=== PATIENT | female | born 1965 | race Caucasian/White ===

== ENCOUNTER → 2017-02-04 | Outpatient (CLI) | payer MEDICARE, OTHER ==
--- NOTE | 2017-02-04 15:58 | KCIC ---
Indication: Left shoulder pain. Time of exam 3:38 PM 3 views of the left shoulder were obtained. The glenohumeral and acromioclavicular alignment are normal. The acromiohumeral space is normal. No fracture or dislocation is identified. IMPRESSION: No acute abnormality is detected. Electronically signed by: Gregg Feliciano MD (02/04/2017 3:55 PM) [id number]
== END | disposition home or self-care (01) ==
LOC: KCIC 15:10
PROVIDERS: ATTEND Family Medicine
DX: M25.512 Pain in left shoulder (principal)
CPT/HCPCS: 73030

== ENCOUNTER → 2017-05-19 | Outpatient (CLI) | payer OTHER ==
--- NOTE | 2017-05-19 16:03 | KCIC ---
UPPER EXT JOINT WO CONT LEFT dated 05/19/2017 3:30 PM Indication: Left shoulder pain , pain since January , decreased range of motion no known injury Comparison: No comparison is available. Technique: Routine multiplanar multisequence imaging performed. No contrast administered. Findings: Intermediate T2 signal throughout the supraspinatus and infraspinatus portions of the rotator cuff. There is bursal surface partial tearing of the anterior supraspinatus footplate that extends approximately 50-60 percent cuff thickness. No full-thickness tear or cuff retraction. Subscapularis is intact. Mild hypertrophic change of the acromioclavicular joint. No significant undersurface spurring. Trace amount of subacromial/subdeltoid bursal fluid. Acromion type I morphology. Intermediate T2 signal within the substance of the long head biceps tendon proximally. Extra articular portion courses within the bicipital groove. Mild increased signal within the biceps anchor. Mild hypertrophic change of the glenohumeral joint. Mild thinning and surface irregularity of the anterior glenoid articular cartilage. There joint effusion or loose body. Glenoid labrum is blunted morphology. No discrete labral tear or perilabral cyst. IMPRESSION: 1. Rotator cuff tendinopathy with mild to moderate bursal surface partial tearing of the anterior supraspinatus footplate. No full-thickness tear or cuff retraction. 2. 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 Blunted morphology of the anterior and posterior labrum suggestive of early degenerative labral fraying. No discrete tear. 3. Mild proximal biceps tendinosis. 4. Mild AC joint arthropathy. Electronically signed by: Ac Amado MD (05/19/2017 3:59 PM) [id number]
== END | disposition home or self-care (01) ==
LOC: KCIC MRI 15:03
PROVIDERS: ATTEND Nurse Practitioner Gerontology
DX: M94.212 Chondromalacia, left shoulder (principal); M19.012 Primary osteoarthritis, left shoulder
CPT/HCPCS: 73221